=== PATIENT | male | born 1980 | race Caucasian/White ===

== ENCOUNTER 2019-04-24 21:38 | Emergency (ER) | payer OTHER ==
[~2019-04-24] VITALS: Ht 180.3 cm; Wt 86.2 kg
--- NOTE | 2019-04-25 13:13 | EKG ---
[facility] [address] [facility] [place], [place] [address] Signed Normal sinus rhythm Nonspecific ST abnormality Abnormal ECG No previous ECGs available Confirmed by JAZMIN PURI DO ([id number]) on 04/25/2019 1:12:57 PM Electronically Signed By: JAZMIN PURI DO 04/25/19 1313 PATIENT NAME: KELLY SINCLAIR Electrocardiogram DATE OF : 80 PHYSICIAN: JAZMIN PURI DO REPORT #: [id number] REPORT IS CONFIDENTIAL AND NOT TO BE RELEASED WITHOUT AUTHORIZATION
== END 2019-04-25 00:05 | disposition home or self-care (01) ==
LOC: ED 21:38
DX: T43.222A Poisoning by selective serotonin reuptake inhibitors, intentional self-harm, initial encounter (principal); T38.1X2A Poisoning by thyroid hormones and substitutes, intentional self-harm, initial encounter; G43.909 Migraine, unspecified, not intractable, without status migrainosus; Z87.891 Personal history of nicotine dependence
CPT/HCPCS: 51701; 80053; 80176; 84443; 85025; 93005; 93010; 99285-25; G0480